=== PATIENT | female | born 1935 | race Two or more races ===

== ENCOUNTER 2022-02-21 04:16 | Inpatient (IN) | payer OTHER ==
[~2022-02-21] VITALS: Ht 154.9 cm; Wt 49.9 kg
--- NOTE | 2022-02-21 10:08 | NUR ---
SE RECIBE PACIENTE EN CAMA #2 AREA DE ICU #2. SE OFRECE ERIK PARA EVALUAR CONDICION Y BRINDAR CUIDADOS CORRESPONDIENTES. PACIENTE ALERTA, CONECTADA A MONITOR CARDIACO CON SATUROMETRO. IVF'S PATENTES, BAJANDO TRIDIL A 1MLS/HR CON 2 CANALIZACIONES EN BRAZO DERECHO ANGIOS #18, AREA NARDA DE EDEMA Y/O ERITEMA. PACIENTE CON BPAP. SE MIDEN Y DOCUMENTAN S/V. BARANDAS ELEVADAS POR REYES SEGURIDAD. SE MONITOREA POR CAMBIOS SIGNFICATIVOS.
== END 2022-03-04 21:55 | disposition home or self-care (01) | DRG 280 ==
LOC: ER 04:16 → EDBD 13:36 → ICU-2 13:36 → ICU 13:36 → MEDI 03-02 18:21
PROVIDERS: ADMIT Internal Medicine; ATTEND Internal Medicine
PROC: B24BZZZ Ultrasonography of Heart with Aorta (ICD-10-PCS; 2022-02-21)
PROC: BW24ZZZ Computerized Tomography (CT Scan) of Chest and Abdomen (ICD-10-PCS; principal; 2022-02-22)
DX: I13.0 Hypertensive heart and chronic kidney disease with heart failure and stage 1 through stage 4 chronic kidney disease, or unspecified chronic kidney disease (principal); I50.23 Acute on chronic systolic (congestive) heart failure; I21.4 Non-ST elevation (NSTEMI) myocardial infarction; R57.0 Cardiogenic shock; I21.3 ST elevation (STEMI) myocardial infarction of unspecified site; E87.1 Hypo-osmolality and hyponatremia; N17.8 Other acute kidney failure; N39.0 Urinary tract infection, site not specified; R06.02 Shortness of breath; N18.9 Chronic kidney disease, unspecified; B96.89 Other specified bacterial agents as the cause of diseases classified elsewhere; Z20.822 Contact with and (suspected) exposure to COVID-19; F32.A Depression, unspecified